=== PATIENT | female | born 1990 | race Caucasian/White ===

== ENCOUNTER 2019-06-22 16:57 | Inpatient (IN) | payer OTHER ==
[~2019-06-22] VITALS: Ht 161.5 cm; Wt 94.3 kg
[2019-06-22 17:07] VITALS: BP 113/72
--- NOTE | 2019-06-22 17:15 | NUR ---
AMB TO BED 09, PT PROVIDED WITH URINE SAMPLE CUP
--- NOTE | 2019-06-22 17:15 | NUR ---
PT C/O INTERMITTENT EPIGASTRIC AND LUQ PAIN RADIATING TO L BACK 01/24. PT STATES SHE HAS HAD THE PAIN BEFORE BUT THOUGHT IT WAS DUE TO EATING GREASY FOODS. PT WAS REFERRED FROM URGENT CARE R/O CHOLECYSTITIS/GALLSTONES. +N/V, - CONSTIPATION OR DIARRHEA. +EPIGASTRIC TENDERNESS. ABDOMEN SOFT AND ROUND. PT ALERT AND AWAKE. HX- DENIES
--- NOTE | 2019-06-22 17:18 | NUR ---
DR LEDEZMA AT BEDSIDE FOR US
[2019-06-22] MEDS ORDERED: ALUMINUM HYD/MAG/SIMETHICONE 30 ML UDC PO ONE (17:25)
[2019-06-22] MEDS ORDERED: FAMOTIDINE 20 MG/2 ML VIAL IVP ONE (17:25)
[2019-06-22] MEDS ORDERED: LIDOCAINE VISCOUS 2% 20 ML UDC PO ONE (17:25)
--- NOTE | 2019-06-22 17:29 | NUR ---
PT AMB TO RESTROOM WITH STEADY GAIT
[2019-06-22 17:46] LABS: BASOPHILS % (AUTO) 0.4 % (0.0-2.0); EOSINOPHILS % (AUTO) 0.4 % (0.0-4.0); HEMATOCRIT 39.6 % (36-48); HEMOGLOBIN 13.2 g/dL (12.0-16.0); LYMPHOCYTES # (AUTO) 1.2 K/uL (2.5-16.5); LYMPHOCYTES % (AUTO) 10.9 % (20.5-51.1); MEAN CORPUSCULAR HEMOGLOBIN 27 pg (27-31); MEAN CORPUSCULAR HGB CONC 33 g/dL (33-37); MEAN CORPUSCULAR VOLUME 80.6 fL (80-94); MONOCYTES # (AUTO) 0.4 K/uL (0.8-1.0); NEUTROPHILS # (AUTO) 9.3 K/uL (1.8-7.7); NEUTROPHILS % (AUTO) 84.3 % (42.2-75.2); PLATELET COUNT (AUTO) 378 K/uL (140-450); RED BLOOD CELL COUNT(AUTO) 4.92 MIL/uL (4.20-5.40); RED CELL DISTRIBUTION WIDTH 14.6 % (11.6-13.7)
[2019-06-22 17:50] LABS: APPEARANCE,URINE CLEAR (CLEAR); BILIRUBIN,URINE 1+ (NEGATIVE); BLOOD, URINE NEGATIVE (NEGATIVE); COLOR,URINE YELLOW (YELLOW); LEUKOCYTE ESTERASE ,URINE 1+ (NEGATIVE); NITRITE, URINE NEGATIVE (NEGATIVE); PH,URINE 6.5 (5.0-9.0); UGLUCOSE NEGATIVE (NEGATIVE)
[2019-06-22 17:57] LABS: ALBUMIN 3.9 g/dL (3.4-5.0); ANION GAP 11.7 (8-16); CARBON DIOXIDE 29.9 mmol/L (21-32); CREATININE 1.1 mg/dL (0.6-1.3); POTASSIUM 3.6 mmol/L (3.5-5.1); TOTAL BILIRUBIN 2.3 mg/dL (0.0-1.0)
[2019-06-22 18:01] LABS: RBC,URINE 0-5 /HPF (0-5)
[2019-06-22] MEDS ORDERED: NACL 0.9% 1,000 ML IV ONE (18:15)
--- NOTE | 2019-06-22 18:19 | NUR ---
GI COCKTAIL AND PEPCID ADMINISTERED, BOLUS RUNNING
[2019-06-22] MEDS ORDERED: HYDROcodone/APAP 5/325 MG 1 TAB TAB PO PRN (18:40)
[2019-06-22] MEDS ORDERED: ONDANSETRON 4 MG/2 ML VIAL IVP PRN (18:40)
[2019-06-22] MEDS ORDERED: PANT40VI PO (18:40)
[2019-06-22] MEDS ORDERED: ACETAMINOPHEN 325 MG TAB PO PRN (18:40)
--- NOTE | 2019-06-22 18:42 | NUR ---
US AT BEDSIDE
[2019-06-22 18:58] LABS: BARBITURATE, URINE NEGATIVE ng/ml (NEG <=200); BENZODIAZEPINE, URINE NEGATIVE ng/mL (NEG <=200); CANNABINOID, URINE NEGATIVE ng/mL (NEG <=50); COCAINE, URINE NEGATIVE ng/mL (NEG <=300); OPIATE, URINE NEGATIVE ng/mL (NEG <=2000); PHENCYCLIDINE SCREEN,URINE NEGATIVE ng/mL (NEG <=25)
--- NOTE | 2019-06-22 19:00 | NUR ---
NADR, PAIN 11/24
--- NOTE | 2019-06-22 19:05 | NUR ---
Patient will be admitted to care of [facility]. Admited to [facility]. Will go to room 112A. Belongings list completed. Report to RUSTAM GREWAL. INFORMED RUSTAM THAT PT STILL C/O PAIN.
--- NOTE | 2019-06-22 19:10 | NUR ---
ADMITTED THIS 29 YEAR OLD FEMALE FROM ER PER IFEANYI WITH CC OF ABDOMINAL PAIN, AMBULATED TO BED WITH STEADY GAIT, ASSESSMENT DONE, VITAL SIGNS STABLE, PAIN 10/10 AT THIS TIME, WILL MEDICATE PRN, ORIENTED TO ROOM AND CALL LIGHT, INSTRUCTED NPO EXCEPT MEDS AT THIS TIME, VERBALIZED UNDERSTANDING, PLAN OF CARE DISCUSSED, SAFETY MEASURES IN PLACE, CALL LIGHT WITHIN REACH.
[2019-06-22 19:30] VITALS: BP 106/54
[2019-06-22] MEDS: MORPHINE SULFATE 4 MG/ML SYR IVP PRN ×2 (19:43→23:16)
[2019-06-22] MEDS: DEXT 5% /NACL 0.9% 1,000 ML IV SCH (19:49)
[2019-06-22] MEDS ORDERED: cefTRIAXone 1,000 MG VIAL ONE (19:51)
--- NOTE | 2019-06-22 21:00 | NUR ---
SEEN PT SLEEPING, VISIBLE CHEST RISE AND FALL, MONITORED CLOSELY.
--- NOTE | 2019-06-22 23:20 | NUR ---
PT COMPLAINING OF PAIN 10/24, VITAL SIGNS STABLE, MEDICATED PRN WITH MORPHINE IVP, MAINTAINED ON NPO EXCEPT MEDS, IVF INFUSING WELL, CONTINUE TO MONITOR CLOSELY.
[2019-06-23] VITALS: BP 102/50
--- NOTE | 2019-06-23 01:40 | NUR ---
PT VOMITED 150ML CLEAR MUCOID VOMITUS, FELT BETTER AFTER THROWING UP, MAINTAINED ON NPO EXCEPT MEDS, IVF OF D5 NS AT 100ML INFUSING WELL, MONITORED CLOSELY.
--- NOTE | 2019-06-23 05:30 | NUR ---
PT AWAKE, AMBULATED TO BR WITH STEADY GAIT, VOIDED FREELY, STATED TOLERABLE PAIN 3/10 AT THIS TIME, WILL CALL WHEN PAIN GET WORST, MONITORED CLOSELY.
[2019-06-23] MEDS: DEXT 5% /NACL 0.9% 1,000 ML IV SCH ×2 (05:52→18:30)
--- NOTE | 2019-06-23 07:20 | NUR ---
PT AWAKE, NO SIGNS OF DISTRESS, REPORT GIVEN TO CARMINA SHAW FOR CONTINUITY OF CARE.
--- NOTE | 2019-06-23 07:21 | NUR ---
RECEIVED REPORT FROM MILITARY SCIENCE TEACHER NURSE AT BEDSIDE FOR CONTINUITY OF CARE. PATIENT AWAKE AND ALERT, AT BEDSIDE. IV SITE INTACT, INFUSING WELL. PATIENT DENIES PAIN. NO S/S OF SOB OR DISTRESS NOTED ON ROOM AIR. PT NPO. UPDATED BOARD. UPDATED PATIENT WITH PLAN OF CARE, SHE VERBALIZED UNDERSTANDING. CALL LIGHT WITHIN REACH, WILL CONTINUE TO MONITOR PATIENT.
[2019-06-23 07:55] LABS: BASOPHILS % (AUTO) 0.5 % (0.0-2.0); EOSINOPHILS # (AUTO) 0.1 K/uL (0-0.4); EOSINOPHILS % (AUTO) 1.4 % (0.0-4.0); HEMATOCRIT 34.4 % (36-48); HEMOGLOBIN 11.5 g/dL (12.0-16.0); LYMPHOCYTES # (AUTO) 1.4 K/uL (2.5-16.5); LYMPHOCYTES % (AUTO) 16.9 % (20.5-51.1); MEAN CORPUSCULAR HEMOGLOBIN 27 pg (27-31); MEAN CORPUSCULAR HGB CONC 33 g/dL (33-37); MEAN CORPUSCULAR VOLUME 81.4 fL (80-94); MONOCYTES # (AUTO) 0.4 K/uL (0.8-1.0); MONOCYTES % (AUTO) 5.3 % (1.7-9.3); NEUTROPHILS # (AUTO) 6.2 K/uL (1.8-7.7); NEUTROPHILS % (AUTO) 75.9 % (42.2-75.2); PLATELET COUNT (AUTO) 316 K/uL (140-450); RED BLOOD CELL COUNT(AUTO) 4.22 MIL/uL (4.20-5.40); RED CELL DISTRIBUTION WIDTH 14.5 % (11.6-13.7); WHITE BLOOD COUNT (AUTO) 8.2 K/uL (4.8-10.8)
[2019-06-23 08:00] VITALS: BP 102/52
[2019-06-23 08:01] LABS: ALBUMIN 3.2 g/dL (3.4-5.0); ANION GAP 9.6 (8-16); CARBON DIOXIDE 29.9 mmol/L (21-32); MAGNESIUM 2.1 mg/dL (1.8-2.4); PHOSPHORUS 3.5 mg/dL (2.5-4.9); POTASSIUM 3.5 mmol/L (3.5-5.1); TOTAL BILIRUBIN 1.2 mg/dL (0.0-1.0)
[2019-06-23] MEDS ORDERED: PIPERACILLIN/TAZOBACTAM 3.375 GM in DEXTROSE 5% 50 ML IV SCH (13:45)
[2019-06-23] MEDS ORDERED: PANTOPRAZOLE 40 MG INJ VIAL IVP SCH (14:15)
[2019-06-23] MEDS: PIPERACILLIN/TAZOBACTAM 3.375 GM in DEXTROSE 5% 50 ML IV SCH ×2 (15:45→19:50)
--- NOTE | 2019-06-23 15:47 | NUR ---
ORDERED MEDICATION GIVEN TO PATIENT. PATIENT TOLERATED IT WELL. AT BEDSIDE. PATIENT DENIES PAIN AT THIS TIME. CALL LIGHT WITHIN REACH, WILL CONTINUE TO MONITOR PATIENT.
[2019-06-23 16:00] VITALS: BP 101/52
--- NOTE | 2019-06-23 19:30 | NUR ---
REPORT GIVEN TO POSTPARTUM NURSE NURSE. PATIENT IN STABLE CONDITION. AT BEDSIDE.
--- NOTE | 2019-06-23 20:00 | NUR ---
PT AWAKE,ALERT AND ORIENTED X4, PT IS EATING AT THIS TIME CLEAR LIQUID DIET. INSTRUCTED PATIENT THAT AFTER MIDNIGHT SHE WILL BE NOTHING BY MOUTH, FOR SURGERY IN THE AM.
--- NOTE | 2019-06-23 21:00 | NUR ---
UP TO SHOWER, NO DIFFICULTY NOTED.
[2019-06-23 23:44] LABS: PROTHROMBIN TIME 10.6 secs (10.8-13.4)
[2019-06-24] VITALS: BP 99/46
--- NOTE | 2019-06-24 | NUR ---
AWAKEN BRIEFLY FOR V/S, NO COMPLAINTS.
[2019-06-24] MEDS: DEXT 5% /NACL 0.9% 1,000 ML IV SCH ×3 (00:40→20:40)
--- NOTE | 2019-06-24 02:00 | NUR ---
RESTING COMFORTABLY, NO COMPLAINTS.
[2019-06-24] MEDS: PIPERACILLIN/TAZOBACTAM 3.375 GM in DEXTROSE 5% 50 ML IV SCH ×4 (02:14→20:18)
--- NOTE | 2019-06-24 04:00 | NUR ---
AWAKE REINFORCED NPO STATUS, PT. UNDERSTAND INSTRUCTION. PATIENT ASK WHAT TIME WILL BE THE SURGERY, INFORM PATIENT SHE IS SCHEDULE FOR 0800
[2019-06-24 04:32] LABS: BASOPHILS # (AUTO) 0.1 K/uL (0.00-0.22); BASOPHILS % (AUTO) 0.8 % (0.0-2.0); EOSINOPHILS # (AUTO) 0.3 K/uL (0-0.4); HEMATOCRIT 33.2 % (36-48); HEMOGLOBIN 11.1 g/dL (12.0-16.0); LYMPHOCYTES % (AUTO) 25.8 % (20.5-51.1); MEAN CORPUSCULAR HEMOGLOBIN 27 pg (27-31); MEAN CORPUSCULAR HGB CONC 33 g/dL (33-37); MONOCYTES # (AUTO) 0.5 K/uL (0.8-1.0); NEUTROPHILS # (AUTO) 4.9 K/uL (1.8-7.7); NEUTROPHILS % (AUTO) 63.4 % (42.2-75.2); PLATELET COUNT (AUTO) 267 K/uL (140-450); RED BLOOD CELL COUNT(AUTO) 4.04 MIL/uL (4.20-5.40); RED CELL DISTRIBUTION WIDTH 14.6 % (11.6-13.7); WHITE BLOOD COUNT (AUTO) 7.8 K/uL (4.8-10.8)
[2019-06-24 04:48] LABS: ALBUMIN 2.9 g/dL (3.4-5.0); ANION GAP 8.6 (8-16); CARBON DIOXIDE 28.7 mmol/L (21-32); MAGNESIUM 1.9 mg/dL (1.8-2.4); PHOSPHORUS 3.1 mg/dL (2.5-4.9); POTASSIUM 3.3 mmol/L (3.5-5.1); TOTAL BILIRUBIN 0.9 mg/dL (0.0-1.0)
--- NOTE | 2019-06-24 07:10 | NUR ---
RECEIVED REPORT FROM CUB REPORTER NURSE AT BEDSIDE FOR CONTINUITY OF CARE. PATIENT AWAKE AND ALERT, AT BEDSIDE. IV SITE INTACT, INFUSING WELL. PATIENT DENIES PAIN. NO S/S OF SOB OR DISTRESS NOTED ON ROOM AIR. PT AWARE OF PROCEDURE TIME AT 0800. UPDATED BOARD. UPDATED PATIENT WITH PLAN OF CARE, SHE VERBALIZED UNDERSTANDING. CALL LIGHT WITHIN REACH, WILL CONTINUE TO MONITOR PATIENT.
--- NOTE | 2019-06-24 07:48 | NUR ---
ORDERED MEDICATION GIVEN. PATIENT TOLERATED IT WELL. PATIENT HAS NO COMPLAINTS AT THIS TIME. PATIENT NPO PENDING LAP CHOLY PROCEDURE SCHEDULED AT 0800. CALL LIGHT WITHIN REACH, WILL CONTINUE TO MONITOR PATIENT.
[2019-06-24 07:58] VITALS: BP 98/62
--- NOTE | 2019-06-24 08:58 | NUR ---
PATIENT HAS BEEN SCREENED AND CATEGORIZED MODERATE NUTRITION RISK. PATIENT WILL BE SEEN WITHIN 3-5 DAYS OF ADMISSION. 06/25/19 06/27/[address]
[2019-06-24] MEDS: PANTOPRAZOLE 40 MG INJ VIAL IVP SCH ×2 (10:07→14:35)
--- NOTE | 2019-06-24 10:08 | NUR ---
PATIENT TAKEN BY 2 OLIVE KNOCKER TO LAP CHOLY PROCEDURE. WILL WAIT FOR PATIENT'S RETURN.
[2019-06-24] MEDS ORDERED: SUCCINYLCHOLINE CHLORIDE 200 MG/10 ML VIAL IVP ONE (10:30)
[2019-06-24] MEDS ORDERED: SEVOFLURANE 250 ML BTL INH ONE (10:30)
[2019-06-24] MEDS ORDERED: MEPERIDINE 25 MG/ML SYR ONE (10:30)
[2019-06-24] MEDS ORDERED: KETOROLAC 30 MG/ML VIAL ONE (10:30)
[2019-06-24] MEDS ORDERED: DEXAMETHASONE 4 MG/ML VIAL ONE (10:30)
[2019-06-24] MEDS ORDERED: ONDANSETRON 4 MG/2 ML VIAL ONE (10:30)
[2019-06-24] MEDS ORDERED: ROCURONIUM 50 MG/5 ML VIAL IV ONE (10:30)
[2019-06-24] MEDS ORDERED: PROPOFOL 200 MG/20 ML VIAL IV ONE (10:30)
[2019-06-24] MEDS: BUPIVACAINE-MPF 0.25% 30 ML VIAL INJ ONE ×2 (11:08→12:35)
[2019-06-24] MEDS: LIDOCAINE 1% 500 MG/50 ML VIAL ONE ×2 (11:08→12:35)
[2019-06-24] MEDS: LACTATED RINGERS 1,000 ML IV SCH ×2 (11:23→19:43)
[2019-06-24] MEDS ORDERED: ONDANSETRON 4 MG/2 ML VIAL IVP PRN (11:25)
[2019-06-24] MEDS ORDERED: HYDROmorphone 1 MG/ML AMP IVP PRN ×2 (11:25→13:30)
[2019-06-24] MEDS ORDERED: MEPERIDINE 25 MG/ML SYR IVP PRN (11:25)
[2019-06-24] MEDS ORDERED: diphenhydrAMINE 50 MG/ML VIAL IVP PRN (11:25)
[2019-06-24] MEDS: HYDROmorphone PFS 2 MG/ML SYR ONE ×4 (12:52→13:24)
[2019-06-24] MEDS ORDERED: HYDROcodone/APAP 5/325 MG 1 TAB TAB PO PRN (13:30)
--- NOTE | 2019-06-24 13:45 | NUR ---
PATIENT ARRIVED BACK ON THE FLOOR WITH 2 MONUMENT SETTER. REPORT RECEIVED FROM MONUMENT SETTERCARMINA JENSEN AT BEDSIDE FOR CONTINUITY OF CARE. PATIENT AWAKE AND ALERT, VS WNL. AT BEDSIDE. SURGICAL SITE WITH THERMAGLUE, INTACT, NO DRAINAGE, CLEAN AND DRY. CALL LIGHT WITHIN REACH, WILL CONTINUE TO MONITOR PATIENT.
--- NOTE | 2019-06-24 14:03 | NUR ---
DISCHARGE PLANNING 29 y/o female pt admitted for biliary acute pandreatitis w/o necrosis or infection and disorders of the pancreas. Pt had a baby [address] England consulted; pt has lap-nanda today. DC plan to home once medically stable. Dot Gomez, ANN/CM
[2019-06-24 16:00] VITALS: BP 99/65
--- NOTE | 2019-06-24 17:35 | NUR ---
PT C/O NAUSEA, PRN ZOFRAN GIVEN PRIOR TO DINNER PER PATIENT'S REQUEST. PATIENT TOLERATING IT WELL. PT HAS C/O OF PAIN, BUT DECLINED PAIN MEDICATION AT THIS TIME D/T DECREASED PULSE OF 52 BPM. WILL REASSESS AND MEDICATE. PATIENT AGREEABLE TO PLAN. CALL LIGHT WITHIN REACH, AT BEDSIDE, WILL CONTINUE TO MONITOR PATIENT.
--- NOTE | 2019-06-24 19:20 | NUR ---
REPORT GIVEN TO BATTERBOARD SETTER NURSE AT BEDSIDE FOR CONTINUITY OF CARE. PATIENT IN STABLE CONDITION, AT BEDSIDE.
[2019-06-24 20:00] VITALS: BP 96/57
--- NOTE | 2019-06-24 20:00 | NUR ---
@1945 A/A/O X4.IVF D5NS @ 10ML/HR ON HER LAC,LEAKING & D/C.IV INSERTED ON HER RIGHT WRIST WITH ANGIO #22 X1.IVF INFUSING WELL.INSTRUCTED TO USE CALL LIGHT NEEDED;WITHIN REACH.
--- NOTE | 2019-06-24 20:56 | NUR ---
PER PT PAIN WITH RELIEF POST NORCO ADM.
--- NOTE | 2019-06-24 22:00 | NUR ---
IS GIVEN & ABLE TO RAISED 1500.INSTRUCTED TO USE @ LEAST 10X Q 1 HR WHILE AWAKE;VERBALIZED UNDERSTANDING OF THE INSTRUCTION GIVEN.
[2019-06-25] VITALS: BP 108/62
[2019-06-25] MEDS: PIPERACILLIN/TAZOBACTAM 3.375 GM in DEXTROSE 5% 50 ML IV SCH ×2 (02:00→08:00)
--- NOTE | 2019-06-25 02:00 | NUR ---
RESTING COMFORTABLY IN NO ACUTE DISTRESS.
--- NOTE | 2019-06-25 04:00 | NUR ---
RESTING COMFORTABLY IN NO ACUTE DISTRESS.
[2019-06-25] MEDS: LACTATED RINGERS 1,000 ML IV SCH (04:03)
[2019-06-25] MEDS: DEXT 5% /NACL 0.9% 1,000 ML IV SCH (06:40)
--- NOTE | 2019-06-25 06:54 | NUR ---
ENDORSED RESTING COMFORTABLY IN NO ACUTE DISTRESS.SAFETY MAINTAINED.
--- NOTE | 2019-06-25 07:15 | NUR ---
PT IS AWAKE, ALERT, AND LAYING IN BED. NO REPORTS OF ANY PAIN OR DISTRESS NOTED. RIGHT WRIST 22 GAUGE IV IS PATENT, ASYMPTOMATIC, AND SALINE LOCKED. RESPIRATIONS ARE EVEN AND UNLABORED ON ROOM AIR. PT IS S/P LAP KYLEE, SURGICAL WOUND PRESENT WITH DRESSING STILL IN PLACE. SAFETY MEASURE IN PLACE, CALL LIGHT WITHIN REACH, AND WILL CONTINUE TO MONITOR
[2019-06-25 07:21] LABS: BASOPHILS % (AUTO) 0.3 % (0.0-2.0); EOSINOPHILS % (AUTO) 0.1 % (0.0-4.0); HEMATOCRIT 34.1 % (36-48); HEMOGLOBIN 11.2 g/dL (12.0-16.0); LYMPHOCYTES # (AUTO) 1.3 K/uL (2.5-16.5); LYMPHOCYTES % (AUTO) 10.9 % (20.5-51.1); MEAN CORPUSCULAR HEMOGLOBIN 27 pg (27-31); MEAN CORPUSCULAR HGB CONC 33 g/dL (33-37); MEAN CORPUSCULAR VOLUME 82.3 fL (80-94); MONOCYTES # (AUTO) 0.5 K/uL (0.8-1.0); MONOCYTES % (AUTO) 4.6 % (1.7-9.3); NEUTROPHILS # (AUTO) 9.7 K/uL (1.8-7.7); NEUTROPHILS % (AUTO) 84.1 % (42.2-75.2); PLATELET COUNT (AUTO) 298 K/uL (140-450); RED BLOOD CELL COUNT(AUTO) 4.14 MIL/uL (4.20-5.40); RED CELL DISTRIBUTION WIDTH 14.5 % (11.6-13.7); WHITE BLOOD COUNT (AUTO) 11.5 K/uL (4.8-10.8)
[2019-06-25 07:25] LABS: ALBUMIN 3.1 g/dL (3.4-5.0); ANION GAP 11.5 (8-16); CARBON DIOXIDE 27.1 mmol/L (21-32); PHOSPHORUS 2.3 mg/dL (2.5-4.9); POTASSIUM 3.6 mmol/L (3.5-5.1); TOTAL BILIRUBIN 0.5 mg/dL (0.0-1.0)
[2019-06-25 08:00] VITALS: BP 104/61
--- NOTE | 2019-06-25 09:07 | NUR ---
PT IS AWAKE AND ALERT IN BED. COMPLAINTS OF INCISIONAL PAIN. MEDICATIONS ADMINISTERED PER ORDER AND TOLERATED WELL. SAFETY MEASURES IN PLACE, CALL LIGHT WITHIN REACH, AND WILL CONTINUE TO MONITOR PLAN OF CARE.
--- NOTE | 2019-06-25 11:23 | NUR ---
PT IN BED, AWAKE. REPORTS PAIN AT TOLERABLE LEVEL. SAFETY MEASURES IN PLACE, CALL LIGHT WITHIN REACH. WILL CONTINUE TO MONITOR.
--- NOTE | 2019-06-25 13:37 | NUR ---
DISCHARGE ORDER PLACED, PT REQUESTED TO HAVE IV REMOVED DUE TO DISCOMFORT. IV SITE REMOVED WITH MINIMAL BLOOD LOSS AND LUMEN INTACT. WILL PREPARE DISCHARGE PAPERWORK.
[2019-06-25] MEDS ORDERED: ACET-9525 PO (14:13)
[2019-06-25 15:05] VITALS: BP 88/46
--- NOTE | 2019-06-25 15:45 | NUR ---
PATIENT IS AWAKE AND ALERT LAYING BED WITH SPOUSE AT BEDSIDE. READY FOR DISCHARGE TO BE COMPLETED. PATIENT REPORTS MILD PAIN. SURGICAL WOUND PHOTOGRAPHS TAKEN. SAFETY MEASURES IN PLACE CALL LIGHT WITHIN REACH AND WILL CONTINUE TO MONITOR.
--- NOTE | 2019-06-25 16:10 | NUR ---
PT TO BE DISCHARGED TO HOME AT THIS TIME. DISCHARGE, FOLLOW UP, AND MEDICATION TEACHING GIVEN. PATIENT VERBALIZED UNDERSTANDING, DISCHARGE PAPERWORK WAS SIGNED BY PATIENT. FLU VACCINE IS UP TO DATE AND PNEUMONIA VACCINE IS NOT APPLICABLE. IV SITE REMOVED WITH MINIMAL BLOOD LOSS AND LUMEN INTACT, ID BANDS REMOVED, BELONGINGS VERIFIED AND RETURN TO PATIENT. PATIENT IS IN STABLE CONDITION, SURGICAL WOUNDS PRESENT AND PHOTOGRAPHS PLACED IN PATIENTS CHART. PT ESCORTED OFF THE UNIT IN WHEELCHAIR ACCOMPANIED BY SIGNIFICANT OTHER AND LEFT IN PRIVATE VEHICLE.
== END 2019-06-25 16:10 | disposition home or self-care (01) | DRG 263 ==
LOC: MED 16:57 → MTU 18:56
PROVIDERS: ADMIT Internal Medicine Pulmonary Disease; ATTEND Internal Medicine Pulmonary Disease
PROC: BF141ZZ Fluoroscopy of Gallbladder, Bile Ducts and Pancreatic Ducts using Low Osmolar Contrast (ICD-10-PCS; 2019-06-24)
PROC: 0FT44ZZ Resection of Gallbladder, Percutaneous Endoscopic Approach (ICD-10-PCS; principal; 2019-06-24 12:45)
DX: K85.10 Biliary acute pancreatitis without necrosis or infection (principal); K80.00 Calculus of gallbladder with acute cholecystitis without obstruction; E86.9 Volume depletion, unspecified; N39.0 Urinary tract infection, site not specified
CPT/HCPCS: 36415; 74300; 76001; 76705; 80053; 80305; 81001; 81025; 82374; 83036; 83690; 83735; 84100; 85025; 85610; 85730; 86886; 86900; 86901; 87081; 87086; 96361; 96374; 99285; C1887; C9113; J0330; J0696; J1100; J1170; J1885; J2001; J2175; J2270; J2405; J2543; J2704; J3490; J7030; J7042; J7060; Q0092; Q9967

== ENCOUNTER 2022-12-30 19:43 | Emergency (ER) | payer OTHER ==
[~2022-12-30] VITALS: Ht 162.6 cm; Wt 99.8 kg
[~2022-12-30 19:43] MED LIST: ACET-9525 PO; PANT40VI PO
[2022-12-30 20:31] VITALS: BP 102/64; PULSE 116; RESP 18; TEMP 97.4; O2SAT 100
== END 2022-12-30 23:00 | disposition left against medical advice (07) ==
LOC: MED 19:43
DX: R10.9 Unspecified abdominal pain (principal); R11.10 Vomiting, unspecified; R19.7 Diarrhea, unspecified; Z53.21 Procedure and treatment not carried out due to patient leaving prior to being seen by health care provider
CPT/HCPCS: 99281